=== PATIENT | male | born 1990 | race Caucasian/White ===

== ENCOUNTER 2018-08-20 15:43 | Emergency (ER) | payer SELFPAY ==
[~2018-08-20] VITALS: Ht 167.6 cm; Wt 75.0 kg
[2018-08-20] MEDS ORDERED: ACETAMINOPHEN TAB 650MG DOSE (2X325MG) PO ONE (16:30)
[2018-08-20 17:20] VITALS: BP 126/59
--- NOTE | 2018-08-21 07:51 | REP ---
RIGHT KNEE, FIVE VIEWS: There is no evidence of an acute fracture, dislocation or intrinsic bone disease. IMPRESSION: No fracture or dislocation. Electronically Signed by Kenny Bourgeois MD 08/21/2018 08:41 A
== END 2018-08-20 17:22 | disposition home or self-care (01) ==
LOC: M ED 15:43
DX: M23.91 Unspecified internal derangement of right knee (principal); X58.XXXA Exposure to other specified factors, initial encounter; Y92.139 Unspecified place military base as the place of occurrence of the external cause; Y93.89 Activity, other specified; Y99.1 Military activity; Z72.0 Tobacco use